=== PATIENT | female | born 1985 | race Caucasian/White ===

== ENCOUNTER 2016-10-03 13:42 | Emergency (ER) | payer BC ==
[~2016-10-03 13:42] MED LIST: BENADRYL25 MG PO; BIRTH CONTROL PO; CYPROHEPTADINE H4 MG PO; METAMUCIL0.52 G1 PO; PEPCID20 MG PO; PREDNISONE20 MG PO; ZYRTEC10 M1 PO
== END 2016-10-03 13:48 ==
LOC: EDMED 13:42
PROC: 0HQGXZZ Repair Left Hand Skin, External Approach (ICD-10-PCS; principal; 2016-10-03)
DX: S61.211A Laceration without foreign body of left index finger without damage to nail, initial encounter (principal); W31.9XXA Contact with unspecified machinery, initial encounter; Y92.009 Unspecified place in unspecified non-institutional (private) residence as the place of occurrence of the external cause